=== PATIENT | female | born 1975 | race American Indian/Alaskan Native ===

== ENCOUNTER 2018-02-09 12:03 | Emergency (ER) | payer OTHER ==
[2018-02-09] MEDS ORDERED: TORADOL IM ONE (12:33)
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
--- NOTE | 2018-02-09 13:07 | XRay Report ---
CERVICAL SPINE, 3 views: History: Neck pain. Findings: The vertebral bodies, disk spaces, posterior elements and prevertebral soft tissues are unremarkable. The dens is intact. No acute fracture or malalignment is identified. Impression: 1. No evidence for acute injury to the cervical spine.
[2018-02-09 13:32] VITALS: BP 122/76
== END 2018-02-09 14:24 | disposition home or self-care (01) ==
LOC: ED 12:03
DX: S16.1XXA Strain of muscle, fascia and tendon at neck level, initial encounter (principal); V87.7XXA Person injured in collision between other specified motor vehicles (traffic), initial encounter; Y93.89 Activity, other specified; Y92.89 Other specified places as the place of occurrence of the external cause; Y99.8 Other external cause status
CPT/HCPCS: 72040; 96372; 99283; J1885